=== PATIENT | female | born 1990 | race Caucasian/White ===

== ENCOUNTER → 2024-03-31 | Outpatient (CLI) | payer OTHER ==
[2024-04-02 06:23] LABS: APTIMA MEDIA TYPE Urine; C. TRACHOMATIS BY TMA Negative (Negative); N. GONORRHOEAE BY TMA Negative (Negative); SPECIMEN SOURCE Urine
== END ==
LOC: LAB 14:08 → LAB SHORT 14:08
PROVIDERS: Obstetrics & Gynecology
DX: Z11.3 Encounter for screening for infections with a predominantly sexual mode of transmission (principal)
CPT/HCPCS: 87491; 87591

== ENCOUNTER → 2024-07-28 | Outpatient (CLI) | payer OTHER | LOC: LAB SHORT 13:06 → LAB 13:06 | DX: R30.0 Dysuria (principal) | CPT/HCPCS: 87086 ==

== ENCOUNTER → 2024-09-13 | Outpatient (CLI) | payer OTHER ==
[~2024-09-13] MED LIST: Flonase 0.05% N16 GM; SERT50 PO
== END ==
LOC: LAB 15:09 → LAB SHORT 15:09
DX: Z34.81 Encounter for supervision of other normal pregnancy, first trimester (principal)
CPT/HCPCS: 87081; 87150

== ENCOUNTER 2024-09-16 19:43 | Observation (INO) | payer OTHER ==
[~2024-09-16] VITALS: Ht 162.6 cm; Wt 86.8 kg
[2024-09-16 19:49] VITALS: BP 126/78
[2024-09-16 20:33] VITALS: BP 119/79
[2024-09-16 22:28] VITALS: BP 118/67
[2024-09-17] MEDS ORDERED: Morphine Sulfate 10 MG/ML 1MLSYR IM ONE (00:05)
[2024-09-17] MEDS ORDERED: Promethazine HCl 25 MG Tab PO ONE (00:05)
[2024-09-17 00:06] VITALS: BP 123/73
[2024-09-17] MEDS ORDERED: Flonase 0.05% N16 GM (00:27)
[2024-09-17] MEDS ORDERED: SERT50 PO (00:27)
[2024-09-17 00:51] VITALS: BP 120/70
[2024-09-17 06:37] VITALS: BP 118/73
[2024-09-17 07:04] VITALS: BP 122/74
[2024-10-05] MEDS ORDERED: IBUP800 PO (11:43)
== END 2024-09-17 09:02 | disposition home or self-care (01) ==
LOC: OBS 19:43 → BC 19:44 → OBS 19:44 → BC 09-17 → OBS 09-17 → BC 09-17 00:01 → OBS 09-17 00:01 → BC 09-17 08:45 → OBS 09-17 08:45 → BC 09-17 08:45
PROVIDERS: ADMIT Advanced Practice Midwife
DX: O47.03 False labor before 37 completed weeks of gestation, third trimester (principal); Z3A.36 36 weeks gestation of pregnancy; Z88.2 Allergy status to sulfonamides
CPT/HCPCS: 59025; 76815; 81003; 99214; A9270; J2270

== ENCOUNTER 2024-09-22 19:40 | Observation (INO) | payer OTHER ==
[~2024-09-22] VITALS: Ht 162.6 cm; Wt 81.8 kg
[2024-09-22 20:03] VITALS: BP 112/73
[2024-09-22] MEDS ORDERED: Lactated Ringer's 1,000 ML IV ONE (21:00)
[2024-09-22] MEDS ORDERED: Morphine Sulfate 10 MG/ML 1MLSYR IM ONE (21:00)
[2024-09-22] MEDS ORDERED: Lactated Ringer's 1,000 ML IV SCH (21:00)
[2024-09-22 21:31] VITALS: BP 113/63
[2024-09-22 22:01] VITALS: BP 110/60
[2024-09-23 00:25] VITALS: BP 114/70
[2024-09-23] MEDS ORDERED: Acetaminophen 500 MG Tab PO PRN (02:25)
[2024-09-23 06:37] VITALS: BP 112/66
[2024-09-23 08:25] VITALS: BP 112/66
--- NOTE | 2024-09-23 08:40 | NUR ---
to dc home. with , script to k[facility]. has copy of dc instructions and next appt with dr christianson is september 27. encouraged to call with questions.
[2024-09-23] MEDS ORDERED: Lactated Ringer's 1,000 ML IV SCH (21:00)
[2024-10-05] MEDS ORDERED: IBUP800 PO (11:43)
== END 2024-09-23 08:40 | disposition home or self-care (01) ==
LOC: OBS 19:40 → BC 19:41 → OBS 09-23 02:28 → BC 09-23 02:29 → OBS 09-23 02:29 → BC 09-23 02:30 → OBS 09-23 02:30 → BC 09-23 08:40
PROVIDERS: ADMIT Family Medicine
DX: N85.8 Other specified noninflammatory disorders of uterus (principal)
CPT/HCPCS: 36415; 59025; 76819; 81003; 86850; 86900; 86901; 96372; 99214; G0378; J2270; J7120

== ENCOUNTER 2024-10-04 08:04 | Observation (INO) | payer OTHER ==
[2024-10-04 13:35] VITALS: BP 119/73
[2024-10-05] MEDS ORDERED: IBUP800 PO (11:43)
== END 2024-10-04 15:01 | disposition home or self-care (01) ==
LOC: BC 08:04 → UNDOADMIN 08:04 → BC 08:25 → MEDS 12-14 16:15 → UNDOADMIN 12-14 16:15
PROVIDERS: ADMIT Obstetrics & Gynecology
DX: O32.0XX0 Maternal care for unstable lie, not applicable or unspecified (principal); O99.343 Other mental disorders complicating pregnancy, third trimester; F41.8 Other specified anxiety disorders; F90.9 Attention-deficit hyperactivity disorder, unspecified type; J45.909 Unspecified asthma, uncomplicated; O99.513 Diseases of the respiratory system complicating pregnancy, third trimester; Z88.2 Allergy status to sulfonamides
CPT/HCPCS: 59025